=== PATIENT | female | born 1985 | race Caucasian/White ===

== ENCOUNTER → 2016-09-22 | Outpatient (REF) | payer OTHER ==
[~2016-09-22] MED LIST: ACET50TA PO; DOCU10ELUD PO; IBUP600T26 PO; MOM30SS PO; PRENTAB9 PO
== END ==
LOC: M LAB REF 13:00
PROVIDERS: ATTEND Obstetrics & Gynecology
DX: Z34.83 Encounter for supervision of other normal pregnancy, third trimester (principal)

== ENCOUNTER 2016-09-30 05:29 | Outpatient (CLI) | payer OTHER ==
[~2016-09-30] VITALS: Ht 149.9 cm; Wt 60.0 kg
[2016-09-30] VITALS (7 sets, daily range): BP systolic 89–100; BP diastolic 51–61
--- NOTE | 2016-09-30 07:10 | REPUSA ---
CLINICAL HISTORY: Flank pain. TECHNIQUE: Realtime sonographic images were obtained in multiple projections. COMMENTS: The right kidney measures 11.4x6.5x5.2 cm and the left kidney measures 10.5x4.8x5.4 cm. The left kidney is free of hydronephrosis. Mild fullness of the right collecting system. There is no evidence of solid or cystic mass. There is no perinephric fluid. There is no renal calculus. IMPRESSION: Mild fullness of the right collecting system. Thank you for your kind referral of this patient.
--- NOTE | 2016-09-30 07:10 | REPUSA ---
CLINICAL HISTORY: Pelvic pain. TECHNIQUE: Realtime sonographic images were obtained in multiple projections via TA approach. The exa mination was performed by the fisher eel spear and still images were submitted for interpretation. COMMENTS: Single, live intrauterine gestation in vertex presentation. motion was identified. heart rate 133 beats per minute. Anterior placenta. No evidence of placental abruption or placental previa. Placental changes grade 2. Unremarkable amniotic fluid. The cervical length is 4.5 cm. The estimated gestation age is 36 weeks and 3 days. Appropriate interval growth since the prior exam. gender was documented as they may. Nuchal CORD was not seen. Amniotic fluid index 11.2 cm. Doppler evaluation of the umbilical cord. Resistive index 0.49. Systolic/diastolic 1.98. IMPRESSION: Single, live intrauterine gestation. No abnormality is seen. Thank you for your kind referral of this patient.
[2016-09-30] MEDS ORDERED: LR 1,000 ML IV SCH (07:15)
[2016-09-30] MEDS ORDERED: LACTATED RINGER'S 1000 ML IV ONE (07:15)
[2016-09-30] MEDS ORDERED: PROMETHAZINE INJ 25 MG/ML VIAL (J2550) IV ONE (08:30)
[2016-09-30] MEDS ORDERED: BUTORPHANOL 2 MG/ML INJ (J0595) IV ONE (08:30)
== END 2016-09-30 13:10 | disposition home or self-care (01) ==
LOC: M LDO 05:29
PROVIDERS: ATTEND Advanced Practice Midwife
DX: O99.89 Other specified diseases and conditions complicating pregnancy, childbirth and the puerperium (principal); R10.2 Pelvic and perineal pain; R10.32 Left lower quadrant pain; Z3A.37 37 weeks gestation of pregnancy; Z88.8 Allergy status to other drugs, medicaments and biological substances
CPT/HCPCS: 76775; 76816; 76820; 81001; 87086; 96374; J0595

== ENCOUNTER 2016-10-25 16:34 | Inpatient (IN) | payer OTHER ==
[~2016-10-25] VITALS: Ht 149.9 cm; Wt 63.5 kg
[2016-10-25 16:44] VITALS: BP 113/73
[2016-10-25 17:38] VITALS: BP 106/69
[2016-10-25] MEDS: miSOPROStol 50 MCG 1/2 TAB (S0191) PO SCH ×2 (18:08→22:01)
[2016-10-25 18:22] LABS: MEAN CORPUSCULAR HGB CONC 34.3 g/dl (32.0-36.5); MEAN CORPUSCULAR VOLUME 84.6 fl (80.0-96.0); RED CELL DISTRIBUTION WIDTH 13.3 % (11.5-14.5); WHITE BLOOD COUNT 10.9 K/mm3 (4.0-10.0)
--- NOTE | 2016-10-25 19:33 | HPE ---
DATE OF ADMISSION: 10/25/2016 HISTORY OF PRESENT ILLNESS: Olga is a 31-year-old 4, para 2-0-1-2, at 41 weeks gestation with an estimated date of confinement (EDC) of 10/18/2016, based on last normal menstrual period confirmed by first trimester ultrasound. She presents to labor and delivery today for induction of labor due to post-term per consult with Dr. Ena Hyman. She reports an occasional contraction. Denies vaginal bleeding and leakage of fluid. Her fetus has been active. care was initiated at [facility] in the first trimester. course is complicated by a history of a hemorrhage per patient report following her first delivery. However, in review of her delivery note and discharge summary, there is no mention of a hemorrhage and she had a normal delivery without any complications, as well as a normal uncomplicated recovery. OBSTETRICAL HISTORY: November 2005: At 39-5/7 weeks spontaneous vaginal delivery, 7 pounds 11 ounces female following induction of labor with patient report of hemorrhage. 2010: Spontaneous miscarriage May 2013: At 40 weeks gestation, 7 pounds 4 ounces female vaginal delivery, spontaneous labor. OBSTETRICAL LABORATORIES: Include blood type B positive, antibody screen negative, rubella immune. Venereal disease research laboratory ([facility]) was nonreactive. Urine culture with no growth. Hepatitis B surface antigen negative, HIV negative. Hepatitis C antibody negative, gonorrhea and chlamydia negative. She did decline all genetic serum screening markers. Her gestational diabetic screening was 91 and her GBS is negative. PAST MEDICAL HISTORY: 1. Gallbladder disease. 2. Abnormal Pap smear. 3. Childhood varicella. PAST SURGICAL HISTORY: 1. Eye surgery. 2. Oral surgery. 3. Loop electrosurgical excision procedure (LEEP). FAMILY HISTORY: Heart disease, high cholesterol, cervical cancer, throat cancer. SOCIAL HISTORY: The patient is single; however, the father of baby is involved and he is at bedside for support. She is a nonsmoker. She denies alcohol and drug use. No history of any sexually transmitted infections, and no history of abuse physical, sexual or emotional. ALLERGIES: REGLAN and MUCOMYST. CURRENT MEDICATIONS: vitamins. OBJECTIVE: VITAL SIGNS: Temperature 96.9, pulse 113, respirations 18, blood pressure 113/70. GENERAL: She is alert and oriented times three. No apparent distress, smiling and talkative. heart rate is 130 with moderate variability, positive accelerations, no decelerations, emmanuel every 2-4 minutes, mild to palpation. STERILE VAGINAL EXAM: 2-3 cm dilated, 50% effaced, minus three station. ABDOMEN: Gravid, cephalic presentation. Estimated weight 8 pounds. ASSESSMENT: Intrauterine at 41 weeks. heart rate category one. PLAN: Admit the patient to labor and delivery. Saline lock. Out of bed ad endy. Regular diet at this time. Laboratories. Misoprostol 50 mcg by mouth every four hours for cervical ripening. I did review the risks to induction of labor including failed induction, intolerance to labor and increased risk for section. Reviewed the risks to continuing expectant management which will be decreased placental function, compromise. The patient had all her questions answered and the patient and her partner do desire to proceed with induction. I do anticipate cervical ripening and a normal spontaneous vaginal delivery.
[2016-10-26] MEDS ORDERED: OXYTOCIN 30 UNITS IN 0.9% NaCl 500ML IV BAG (J2590) As Ordered ONE (00:45)
[2016-10-26] MEDS ORDERED: OXYTOCIN DRIP 30 UNITS in APPROPRIATE DILUENT 1 EA IV SCH (01:33)
[2016-10-26] MEDS ORDERED: METHYLERGONOVINE MALEATE 0.2 MG TAB PO PRN (01:45)
[2016-10-26] MEDS ORDERED: RHOGAM 300 MCG (1500 IU) INJ (J2790) IM SCH (01:45)
[2016-10-26] MEDS ORDERED: DOCUSATE SODIUM 100 MG CAP PO PRN (01:45)
[2016-10-26] MEDS ORDERED: MEASLES,MUMPS,RUBELLA VACCINE INJ (MMR-II) (90707) SC SCH (01:45)
[2016-10-26] MEDS ORDERED: DIBUCAINE 1% OINTMENT 30GM TOP PRN (01:45)
[2016-10-26 03:17] VITALS: BP 102/66
[2016-10-26] MEDS: IBUPROFEN 800 MG TAB PO PRN ×3 (03:19→20:21)
[2016-10-26] MEDS: ACETAMINOPHEN 500 MG TAB PO PRN ×3 (05:04→22:22)
[2016-10-26 06:09] VITALS: BP 107/57
[2016-10-26] MEDS: PRENATAL VITAMIN TAB PO SCH (08:19)
--- NOTE | 2016-10-26 09:40 | DN ---
DATE: 10/26/2016 Olga is a 31-year-old 4, para 3-0-1-3 now who was admitted to labor and delivery for induction of labor. She had two doses of misoprostol orally and labor did ensue. She coped with her labor through hydrotherapy and out of bed positions. She had spontaneous rupture of membranes at 0031. She progressed to full dilation at 0111. She pushed to a normal spontaneous vaginal delivery of a live female infant in OA position with restitution to LOT position at 0114. There was no nuchal cord. The shoulders delivered with gentle downward guidance and the corpus immediately followed. The was placed on maternal abdomen crying and active. Her mouth and nares were bulb suctioned. The cord was clamped times two once pulsations ceased and cut by the father of the baby. Spontaneous expulsion of an intact placenta with three-vessel cord by Schultze mechanism was at 0122. Uterine hemostasis achieved with uterine fundal massage and IV Pitocin rapid infusion. Estimated blood loss 150 mL. Perineum and vagina were inspected and noted to be intact. Clarence female weighed 8 pounds 2 ounces, 3682 grams, 7/8. Mom plans to breastfeed her daughter and the family have named her Valderrama. At the close of delivery, lap counts needle counts and instrument counts were correct and verified.
[2016-10-26 18:21] VITALS: BP 121/59
[2016-10-27] MEDS: ACETAMINOPHEN 500 MG TAB PO PRN ×2 (02:52→10:57)
[2016-10-27] MEDS: IBUPROFEN 800 MG TAB PO PRN (05:24)
[2016-10-27 05:34] VITALS: BP 104/59
[2016-10-27] MEDS: PRENATAL VITAMIN TAB PO SCH (07:46)
[2016-10-27] MEDS ORDERED: IBUP-1114 PO (08:58)
== END 2016-10-27 12:00 | disposition home or self-care (01) | DRG 775 ==
LOC: M LDI 16:34 → M OBS 10-26 03:01
PROVIDERS: ADMIT Advanced Practice Midwife; ATTEND Advanced Practice Midwife
PROC: 3E0D7GC Introduction of Other Therapeutic Substance into Mouth and Pharynx, Via Natural or Artificial Opening (ICD-10-PCS; 2016-10-25)
PROC: 10E0XZZ Delivery of Products of Conception, External Approach (ICD-10-PCS; principal; 2016-10-26)
DX: O48.0 Post-term pregnancy (principal); Z37.0 Single live birth; Z3A.41 41 weeks gestation of pregnancy; Z82.49 Family history of ischemic heart disease and other diseases of the circulatory system; Z80.49 Family history of malignant neoplasm of other genital organs; Z80.1 Family history of malignant neoplasm of trachea, bronchus and lung; Z88.8 Allergy status to other drugs, medicaments and biological substances

== ENCOUNTER → 2016-11-17 | Outpatient (REF) | payer OTHER ==
[~2016-11-17] MED LIST changes: +IBUP-1114 PO
== END ==
LOC: M LAB REF 17:16
PROVIDERS: ATTEND Advanced Practice Midwife
DX: R35.0 Frequency of micturition (principal)

== ENCOUNTER → 2016-11-22 | Outpatient (REF) | payer OTHER | LOC: M LAB REF 10:50 | PROVIDERS: ATTEND Physician Assistant | DX: E50.9 Vitamin A deficiency, unspecified (principal) ==

== ENCOUNTER → 2017-02-17 | Outpatient (REF) | payer OTHER | LOC: M LAB REF 14:07 | PROVIDERS: ATTEND Advanced Practice Midwife | DX: Z12.4 Encounter for screening for malignant neoplasm of cervix (principal) ==

== ENCOUNTER → 2017-10-07 | Outpatient (REF) | payer OTHER ==
[2017-10-07 11:55] LABS: INFLUENZA A AMPLIFICATION POSITIVE (NEGATIVE); INFLUENZA B AMPLIFICATION NEGATIVE (NEGATIVE); RSV AMPLIFICATION NEGATIVE (NEGATIVE)
== END ==
LOC: M LAB REF 11:05
DX: J11.1 Influenza due to unidentified influenza virus with other respiratory manifestations (principal)
CPT/HCPCS: 87631